=== PATIENT | female | born 1980 | race Caucasian/White ===

== ENCOUNTER 2016-10-01 12:14 | Emergency (ER) | payer OTHER, MEDICAID ==
[2016-10-01 12:21] VITALS: BP 111/66
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
[2016-10-01] MEDS ORDERED: ACETAMINOPHEN 325 MG TABLET PO STA (12:49)
[2016-10-01] MEDS ORDERED: IBUPROFEN 600 MG TABLET PO STA (12:49)
[2016-10-01] MEDS ORDERED: IBUPROFEN 600 MG TABLET PO ONE (12:53)
[2016-10-01] MEDS ORDERED: ACETAMINOPHEN 325 MG TABLET PO ONE (12:54)
== END 2016-10-01 13:31 | disposition home or self-care (01) ==
LOC: ED 12:14
DX: S29.012A Strain of muscle and tendon of back wall of thorax, initial encounter (principal); V43.62XA Car passenger injured in collision with other type car in traffic accident, initial encounter; Y92.488 Other paved roadways as the place of occurrence of the external cause
CPT/HCPCS: 99283; A9270

== ENCOUNTER 2016-11-07 11:22 | Outpatient (CLI) | payer MEDICAID ==
[2016-11-07 18:02] LABS: BASOPHILS % (AUTO) 0.5 %; EOSINOPHILS # (AUTO) 0.2 10^3/uL (0.0-0.7); EOSINOPHILS % (AUTO) 3.4 %; HCT - HEMATOCRIT 37.3 % (37.0-47.0); HGB - HEMOGLOBIN 12.5 g/dL (12.0-16.0); LYMPHOCYTES % (AUTO) 44.4 %; MEAN CORPUSCULAR HEMOGLOBIN 31.3 pg (27.0-31.0); MEAN CORPUSCULAR HGB CONC 33.7 g/dL (32.0-36.0); MEAN CORPUSCULAR VOLUME 92.9 fL (81.0-99.0); MEAN PLATELET VOLUME 9.1 fL (7.9-10.8); MONOCYTES # (AUTO) 0.3 10^3/uL (0.0-1.0); NEUTROPHILS % (AUTO) 44.7 %; NUCLEATED RED BLOOD CELLS AUTO 0.1 /100WBC; RED BLOOD COUNT 4.01 10^6/uL (4.20-5.40); RED CELL DISTRIBUTION WIDTH 12.2 % (12.0-15.0); UNCORRECTED WHITE BLOOD COUNT 4.5 x10^3/uL; WHITE BLOOD COUNT 4.5 x10^3/uL (4.8-10.8)
[2016-11-07 18:06] LABS: ALBUMIN/GLOBULIN RATIO 1.8 (1.0-2.2); BILIRUBIN,TOTAL 0.7 mg/dL (0.2-1.0); CALCIUM 9.5 mg/dL (8.5-10.3); CREATININE 0.6 mg/dL (0.4-1.0); POTASSIUM 3.8 mmol/L (3.5-5.0); TOTAL PROTEIN 7.2 g/dL (6.7-8.2)
[2016-11-10 15:12] LABS: TEST RESULT REPORT (())
== END 2016-11-07 11:23 | disposition home or self-care (01) ==
LOC: LAB.F 11:22
PROVIDERS: ATTEND Physician Assistant Medical
DX: R74.8 Abnormal levels of other serum enzymes (principal)
CPT/HCPCS: 36415; 80053; 81291; 81599; 82306; 85025

== ENCOUNTER → 2017-01-28 | Outpatient (CLI) | payer SELFPAY ==
[2017-01-28 18:30] LABS: BILIRUBIN,URINE NEGATIVE (NEGATIVE)
[2017-01-28 18:43] LABS: UR CULTURE IF IND NOT INDICATED; WBC,URINE 0-3 /HPF (0-5)
== END ==
LOC: LAB.R 16:00
PROVIDERS: ATTEND Physician Assistant Medical
DX: N39.0 Urinary tract infection, site not specified (principal)
CPT/HCPCS: 81001; 87086

== ENCOUNTER 2017-01-29 14:32 | Outpatient (CLI) | payer SELFPAY ==
--- NOTE | 2017-01-29 18:32 | Ultrasound Report ---
PELVIC ULTRASOUND: 01/29/2017 CLINICAL INDICATION: Pelvic pain. TECHNIQUE: Transabdominal pelvic ultrasound performed for global evaluation. Transvaginal pelvic ul trasound performed for detailed evaluation. Real-time scanning performed and static images obtained. The uterus is anteverted, measuring 8.0 x 4.5 x 3.4 cm. The endometrial echo complex measures 5 mm. An IUD is noted in the endometrial canal. No focal myometrial lesion is seen. The ovaries are norm al, with the right measuring 3.7 x 2.7 x 1.8 cm and the left measuring 2.6 x 1.3 x 1.3 cm. Trace herbie e fluid is seen in the cul-de-sac. IMPRESSION: NORMAL PELVIC ULTRASOUND. IUD IN PLACE. JOB #: [id number] EXT JOB #:[id number]
== END 2017-01-29 14:33 | disposition home or self-care (01) ==
LOC: DI 14:32
PROVIDERS: ATTEND Physician Assistant Medical
DX: R10.2 Pelvic and perineal pain (principal); Z97.5 Presence of (intrauterine) contraceptive device
CPT/HCPCS: 76830; 76856

== ENCOUNTER 2023-05-01 08:14 | Outpatient (CLI) | payer OTHER ==
--- NOTE | 2023-05-01 14:02 | Ultrasound Report ---
PROCEDURE: Abdomen Limited INDICATIONS: ELEVATED LVTS TECHNIQUE: Real-time focused scanning was performed of the abdomen, with image documentation. COMPARISONS: None. FINDINGS: Liver: The liver is normal size at 13.0 cm in length. The parenchyma is minimally heterogeneous and hyperechoic. There is an echogenic mass in the anterior left lobe measuring 1.1 cm. No internal vascu larity. Gallbladder: The gallbladder is normal without stones, sludge, wall thickening, or pericholecystic fl uid. No sonographic Martinez's sign per the technologist. Biliary ducts: Intrahepatic bile ducts are non-dilated. Extrahepatic bile duct caliber measures 2.5 mm. Normal is 6-7 mm or less in diameter, or 10 mm or less post-cholecystectomy. Pancreas: Visualized portions of the pancreas are sonographically normal. Right kidney: Normal in size and echotexture. Right kidney measures 12.8 cm long. No hydronephrosis or nephrolithiasis. No solid masses. No complex renal cystic lesions which require follow-up. Possib le parenchymal branch in the mid sinus raising the possibility of duplicated intrarenal collecting sy stem. Aorta: Visualized aorta is normal in caliber at less than 3 cm. IVC: Intrahepatic inferior vena cava is patent. Miscellaneous: No free abdominal fluid. IMPRESSION: 1. Normal gallbladder. 2. Mildly echogenic and coarse liver suggesting steatosis or other intrinsic liver disease. 3. 1.1 cm hyperechoic liver lesion with appearance most consistent with hepatic hemangioma. Reviewed by: Helen Cedeño MD on 05/01/2023 2:00 PM PST Approved by: Helen Cedeño MD on 05/01/2023 2:00 PM PST Station ID: [id number]
== END 2023-05-01 08:15 | disposition home or self-care (01) ==
LOC: DI 08:14
PROVIDERS: ATTEND Registered Nurse
DX: K76.9 Liver disease, unspecified (principal); R74.01 Elevation of levels of liver transaminase levels

== ENCOUNTER 2023-06-13 08:00 | Outpatient (CLI) | payer OTHER | END 2023-06-13 23:59 | disposition home or self-care (01) | LOC: LAB.S 08:00 | PROVIDERS: ATTEND Emergency Medicine | DX: J06.9 Acute upper respiratory infection, unspecified (principal) | CPT/HCPCS: 87070 ==